=== PATIENT | female | born 1970 | race Caucasian/White ===

== ENCOUNTER 2022-05-24 06:03 | Day surgery (SDC) | payer BC | END 2022-05-24 07:51 | disposition home or self-care (01) | LOC: FASU 06:03 | PROVIDERS: ATTEND Orthopaedic Surgery | PROC: 0RNJ4ZZ Release Right Shoulder Joint, Percutaneous Endoscopic Approach (ICD-10-PCS; principal; 2022-05-24) | DX: Z53.8 Procedure and treatment not carried out for other reasons (principal) | CPT/HCPCS: 81025 ==